=== PATIENT | female | born 1950 | race Hispanic/Latino ===

== ENCOUNTER 2016-09-04 10:51 | Outpatient (CLI) | payer BC ==
--- NOTE | 2016-09-05 09:41 | Mammography Report ---
BILATERAL MAMMOGRAM: FINDINGS: The breast tissue is heterogeneously dense, which could obscure detection of small masses (approximately 50%-75% glandular). No mass, distortion, suspicious calcification, or skin change is seen. There are no interval changes when compared to exams dating back to 2015. CAD was utilized. IMPRESSION: Negative mammogram. There is no mammographic evidence of malignancy. RECOMMENDATION: Follow-up per ACS guidelines. BI-RADS CATEGORY: 1 = Negative ACR BI-RADS MAMMOGRAPHIC CODES: 0 = Needs additional imaging evaluation; 1 = Negative; 2 = Benign; 3 = Probably benign; 4 = Suspicious; 5 = Malignant; 6 = Known biopsy-proven malignancy COMMENT: 1. Dense breast tissue, i.e., adenosis, fibrocystic changes, etc., may obscure an underlying neoplasm. 2. Approximately 10% of cancers are not detected with mammography. 3. A negative mammography report should not delay biopsy if a clinically suspicious mass is present. COMMENT: Patient follow-up letters are generated in [employer].
== END 2016-09-04 10:52 | disposition home or self-care (01) ==
LOC: MAMMO 10:51
PROVIDERS: ATTEND Nurse Practitioner Women's Health
DX: Z12.31 Encounter for screening mammogram for malignant neoplasm of breast (principal)
CPT/HCPCS: 77067; G0202

== ENCOUNTER 2016-09-30 08:48 | Outpatient (CLI) | payer BC ==
[2016-09-30 09:17] LABS: Hematocrit 47.4 % (30.3-42.9); Hemoglobin 15.3 gm/dl (10.1-14.3); Mean Corpuscular HGB Conc 32 % (30-34); Mean Corpuscular Volume 79 fl (79-97); Platelet Count 234 K/mm3 (140-440); Red Blood Count 6.04 M/mm3 (3.65-5.03); Red Cell Distribution Width 14.2 % (13.2-15.2); White Blood Count 9.9 K/mm3 (4.5-11.0)
[2016-09-30 09:30] LABS: Mean Corpuscular Hemoglobin 25 pg (28-32)
[2016-09-30 09:33] LABS: Alanine Aminotransferase 56 units/L (7-56); Albumin 4.3 g/dL (3.9-5); Albumin/Globulin Ratio 1.2 %; Alkaline Phosphatase 77 units/L (35-129); Anion Gap 21 mmol/L; Bilirubin,Total 0.4 mg/dL (0.1-1.2); Blood Urea Nitrogen 11 mg/dL (7-17); Calcium 9.4 mg/dL (8.4-10.2); Carbon Dioxide 25 mmol/L (22-30); Chloride 97.8 mmol/L (98-107); Cholesterol 205 mg/dL (50-199); Glucose 185 mg/dL (65-100); HDL Cholesterol 48 mg/dL (40-59); LDL Cholesterol,Direct TNR mg/dL (50-130); Potassium 4.5 mmol/L (3.6-5.0); Sodium 139 mmol/L (137-145); Total Protein 7.8 g/dL (6.3-8.2); Triglycerides 494 mg/dL (2-149)
== END 2016-09-30 08:49 | disposition home or self-care (01) ==
LOC: LAB 08:48
PROVIDERS: ATTEND Family Medicine
DX: E11.9 Type 2 diabetes mellitus without complications (principal); E78.6 Lipoprotein deficiency; R31.1 Benign essential microscopic hematuria; Z79.899 Other long term (current) drug therapy
CPT/HCPCS: 36415; 80053; 80061; 83036; 85027

== ENCOUNTER 2017-02-19 07:22 | Day surgery (SDC) | payer BC ==
[2017-02-19] MEDS ORDERED: NACL 0.9% 1000 ML 1,000 ML IV SCH (08:00)
--- NOTE | 2017-02-19 08:07 | Anesthesia Day of Surgery ---
Anesthesia Day of Surgery - Day of Surgery Patient Examined: Yes Patient H&P Reviewed: Yes Patient is NPO: Yes
--- NOTE | 2017-02-19 08:08 | Anesthesia Consultation ---
Anesthesia Consult and Med Hx Date of service: 02/19/17 - Airway Anesthetic Teeth Evaluation: Good, Bridges (upper) ROM Head & Neck: Adequate Mental/Hyoid Distance: Adequate Mallampati Class: Class I Intubation Access Assessment: Good - Pulmonary Exam CTA: Yes - Cardiac Exam Cardiac Exam: RRR - Pre-Operative Health Status ASA Pre-Surgery Classification: ASA2 Proposed Anesthetic Plan: General, MAC - Pulmonary Hx Smoking: No Hx Asthma: No - Cardiovascular System Hx Hypertension: No Hx Heart Attack/AMI: No - Central Nervous System Hx Seizures: No CVA: No - Gastrointestinal Hx Gastroesophageal Reflux Disease: Yes (on prilosec) - Endocrine Hx Renal Disease: No Hx Liver Disease: No Hx Non-Insulin Dependent Diabetes: Yes - Additional Comments Anesthesia Medical History Comments: NAC
[2017-02-19] MEDS ORDERED: DIPRIVAN 10 MG/ML IV ONE ×2 (08:49)
[2017-02-19] MEDS ORDERED: XYLOCAINE MPF 2% ONE (08:49)
[2017-02-19] MEDS ORDERED: ROBINUL ONE (09:00)
--- NOTE | 2017-02-19 09:54 | Operative Report ---
Operative Report Operative Report: Date of procedure: [02/19/2017] Procedure: Esophagogastroduodenoscopy Preprocedure diagnosis: Chronic GERD, rule out Hurley's Post procedure diagnosis: Normal upper endoscopy Endoscopist: Dr. Jackson Anesthesia: Monitored anesthesia care per anesthesia department Medications: Propofol per anesthesia Estimated blood loss: 0 After careful discussion of the nature and purpose of the procedure as well as details the technique risks benefits and alternatives consent was obtained. The patient was placed in the left lateral decubitus position and medicated per anesthesia. The tip of the [facility] EQ 570 video scope was passed per orum under direct vision into the esophagus and advanced into the stomach and descending duodenum. The descending duodenum the duodenal bulb and pylorus were symmetrical and normal. The scope was withdrawn into the stomach and the stomach then gently insufflated with air. The antrum was normal. The stomach was further insufflated and the scope was then retroflexed and partially withdrawn. The cardia, fundus, and body of the stomach were within normal limits and easily distensible.The scope was then withdrawn in the forward position. The esophagogastric junction was at 35 cm the Z line was sharp. The esophageal body was normal throughout. The procedure was was well tolerated and the patient was observed in recovery. Impressions: Normal-appearing upper digestive tract with no evidence of Hurley' s. Plan: Continue acid suppression therapy. Electronically signed: Russ Jackson MD
--- NOTE | 2017-02-19 09:56 | Operative Report ---
Operative Report Operative Report: Date of procedure: 02/19/2017 Preprocedure diagnosis: History of colon polyps Post procedure diagnosis: Normal study with no recurrent polyps Procedure: Colonoscopy to the cecum Endoscopist: Dr. Jackson Anesthesia: Monitored anesthesia care per anesthesia department Estimated blood loss: 0 Medications: Monitored anesthesia care. See separate report by anesthesia for details. After careful discussion of the nature and purpose of the procedure as well as details of the technique risks benefits and alternatives the patient gave consent. Please see recent history and physical from the office. The patient was placed in the left lateral decubitus position and medicated per anesthesia. A rectal exam was performed sphincter tone was normal there were no masses palpable. The [employer] 570 scope was passed transanally and advanced under continuous direct vision without difficulty to the cecum. The colon was well prepared. The cecum was normal. The ascending colon was normal and on forward and retroflexed views. The transverse colon, descending colon, and sigmoid colon were normal except for a bluish area near the splenic flexure suggesting prior tattoo. The rectum was normal on forward and retroflexed views. The procedure was well-tolerated overall and the patient was observed in recovery. Conclusions: Normal colonoscopy to the cecum. Plan: Repeat colonoscopy in 5 years. Signed electronically: Russ Jackson M.D.
--- NOTE | 2017-02-19 09:59 | Short Stay Summary ---
Short Stay Documentation Date of service: 02/19/17 Narrative H&P: 66-year-old patient who presents for colonoscopy due to prior history of polyps and for upper endoscopy due to chronic gastroesophageal reflux disease to exclude Hurley's - History Past Medical History: diabetes, hypertension Past Surgical History: No surgical history Social history: no significant social history - Allergies and Medications Current Medications: Allergies No Known Allergies Allergy (Verified 02/18/17 13:21) Home Medications Medication Instructions Recorded Confirmed Last Taken Type Omeprazole [PriLOSEC] 40 mg PO QDAY #30 cap 11/01/15 02/18/17 Rx Simvastatin [Zocor TAB] 20 mg PO QHS 11/01/15 11/01/15 02/18/17 History Sitagliptin Phos/Metformin HCl 11/01/15 02/18/17 History [Janumet 50-1,000 mg] glipiZIDE [Glucotrol] 10 mg PO QDAY 11/01/15 11/01/15 02/18/17 History Active Medications Sodium Chloride (Nacl 0.9% 1000 Ml) 1,000 mls @ 50 mls/hr IV DIRECT TSERING Last Admin: 02/19/17 08:16 Dose: 50 mls/hr - Physical exam General appearance: no acute distress, well-nourished Integumentary: no rash, no growths, no abnormal pigmentation HEENT: Atraumatic, PERRLA, EOMI, Mucous membr. moist/pink Lungs: Clear to auscultation, Normal air movement Breasts: deferred Heart: Regular rate, Normal S1, Normal S2, No murmurs Gastrointestinal: normoactive bowel sounds, no tenderness, no distended, no masses, no guarding, no hepatomegaly, no splenomegaly, no obese Female Genitourinary: deferred Rectal Exam: deferred Extremities: no ischemia, pulses intact, pulses symmetrical, No edema Neurological: Normal gait, Normal speech, Strength at 5/5 X4 ext, Normal tone, Sensation intact, Cranial nerves 3-12 NL - Brief post op/procedure progress note Date of procedure: 02/19/17 Findings: See dictation Estimated blood loss: none Pathology: none Specimen disposition: to lab Condition: stable - Disposition Condition at discharge: Good Disposition: DC-01 TO HOME OR SELFCARE - Discharge Diagnoses (1) History of colon polyps Status: Acute (2) GERD (gastroesophageal reflux disease) Status: Acute Qualifiers: Esophagitis presence: E Short Stay Discharge Plan Activity: other (no driving for 24 hours) Weight Bearing Status: Full Weight Bearing Follow up with: SAPNA CARRERA MD [Primary Care Provider] - 7 Days
--- NOTE | 2017-02-19 10:00 | Post Anesthesia Evaluation ---
- Post Anesthesia Evaluation Patient Participated: Yes Airway Patent: Yes Stable Respiratory Function: Yes Nausea/Vomiting: No Temp > 96.8F: Yes Pain Manageable: Yes Adequeate Hydration: Yes Anesthesia Complications: No
[2017-02-19 10:20] VITALS: BP 122/70
== END 2017-02-19 07:23 | disposition home or self-care (01) ==
LOC: GIO 07:22
PROVIDERS: ATTEND Internal Medicine Gastroenterology
DX: Z09 Encounter for follow-up examination after completed treatment for conditions other than malignant neoplasm (principal); K21.9 Gastro-esophageal reflux disease without esophagitis; I10 Essential (primary) hypertension; E11.9 Type 2 diabetes mellitus without complications; Z87.19 Personal history of other diseases of the digestive system; Z79.899 Other long term (current) drug therapy; Z79.84 Long term (current) use of oral hypoglycemic drugs
CPT/HCPCS: 43235; 45378; 82962; J2704; J7030

== ENCOUNTER 2017-09-04 06:13 | Outpatient (CLI) | payer BC ==
--- NOTE | 2017-09-04 08:59 | XRay Report ---
Right shoulder, 3 views. Findings: There are no fractures or other acute findings. Orthopedic screws are seen in the humerus. Mild DJD of the a.c. joint is present. Impression: No acute findings.
== END 2017-09-04 06:14 | disposition home or self-care (01) ==
LOC: XRAY 06:13
PROVIDERS: ATTEND Orthopaedic Surgery
DX: M19.011 Primary osteoarthritis, right shoulder (principal)

== ENCOUNTER 2017-09-08 06:16 | Outpatient (CLI) | payer BC ==
--- NOTE | 2017-09-08 14:36 | Mammography Report ---
BILATERAL DIGITAL SCREENING MAMMOGRAM with CAD and DIGITAL BREAST TOMOSYNTHESIS (DBT): 09/08/17 07:30:00 CLINICAL: Routine screening. COMPARISON:09/04/16 and 09/05/15 FINDINGS: The breasts are heterogeneously dense, which may obscure small masses. No mass, architectural distortion or suspicious calcifications. IMPRESSION: No mammographic evidence of malignancy. BI-RADS CATEGORY: 1 - - Negative RECOMMENDATION: Routine mammographic screening in one year. COMMENT: Patient follow-up letters are generated by our [employer] application.
== END 2017-09-08 06:17 | disposition home or self-care (01) ==
LOC: MAMMO 06:16
PROVIDERS: ATTEND Family Medicine
DX: Z12.31 Encounter for screening mammogram for malignant neoplasm of breast (principal)
CPT/HCPCS: 77063; 77067

== ENCOUNTER 2017-11-18 06:07 | Outpatient (CLI) | payer BC ==
--- NOTE | 2017-11-18 11:29 | Magnetic Resonance Report ---
MR LOWER EXTREMITY JOINT LEFT WITHOUT CONTRAST History: Left knee pain. Technique: Multisequence, multiplanar MRI without contrast. Comparison: None. Findings: The bone marrow signal is within normal limits. No evidence for fracture or bone lesion. There is severe cartilage thinning throughout the medial compartment of the left knee. Mild cartilage thinning in the lateral compartment. The retro-patellar cartilage appears normal thickness although a focal cartilage defect which nearly extends to bone is identified in the lateral facet which is best demonstrated on axial proton density fat sat image 20. The ACL, PCL, MCL, LCL complex and extensor complex are intact and within normal limits. The lateral meniscus is within normal limits. The medial meniscus is severely abnormal. A horizontal cleavage tear is suspected in the body and the anterior portions of the posterior horn. There is meniscal material in the medial, inferior joint recess suggesting a medial flipped meniscus. There is also an approximate 9 mm cyst in this area consistent with a parameniscal cyst. Trace joint effusion is identified. No popliteal cyst. IMPRESSION: Moderate osteoarthritic changes as described. Complex medial meniscal tear with evidence of a flipped medial meniscus. Small para meniscal cyst. Focal retropatellar cartilage defect, lateral facet. Trace joint effusion.
== END 2017-11-18 06:08 | disposition home or self-care (01) ==
LOC: MRI 06:07
PROVIDERS: ATTEND Orthopaedic Surgery
DX: S83.232A Complex tear of medial meniscus, current injury, left knee, initial encounter (principal); M17.12 Unilateral primary osteoarthritis, left knee; X58.XXXA Exposure to other specified factors, initial encounter; Y93.89 Activity, other specified; Y92.89 Other specified places as the place of occurrence of the external cause; Y99.8 Other external cause status
CPT/HCPCS: 73721

== ENCOUNTER 2017-11-25 06:39 | Outpatient (CLI) | payer BC | END 2017-11-25 06:40 | disposition home or self-care (01) | LOC: CARD 06:39 | PROVIDERS: ATTEND Orthopaedic Surgery | DX: Z01.818 Encounter for other preprocedural examination (principal) | CPT/HCPCS: 93005; 93010 ==

== ENCOUNTER 2017-12-24 10:05 | Day surgery (SDC) | payer BC ==
[~2017-12-24 10:05] MED LIST: ANCEF/STERILE WATER 2 GM/20 ML IV NR; LACTATED RINGERS 1,000 ML IV SCH; VERSED IV NR
[2017-12-24] MEDS ORDERED: DIPRIVAN 10 MG/ML IV ONE (11:05)
[2017-12-24] MEDS ORDERED: PERCOCET 5/325 PO PRN (11:23)
[2017-12-24] MEDS ORDERED: DILAUDID IV PRN (11:23)
[2017-12-24] MEDS ORDERED: ZOFRAN IV PRN (11:23)
--- NOTE | 2017-12-24 11:23 | Anesthesia Consultation ---
Anesthesia Consult and Med Hx Date of service: 12/24/17 - Airway Anesthetic Teeth Evaluation: Good ROM Head & Neck: Adequate Mental/Hyoid Distance: Inadequate (2.75FB) Mallampati Class: Class I Intubation Access Assessment: Probably Good - Pulmonary Exam CTA: Yes - Cardiac Exam Cardiac Exam: RRR - Pre-Operative Health Status ASA Pre-Surgery Classification: ASA3 Proposed Anesthetic Plan: General - Pulmonary Hx Smoking: No Hx Asthma: No Hx Sleep Apnea: No (DEONDRE PRE SCREEN LOW RISK) - Cardiovascular System Hx Hypertension: No Hx Heart Attack/AMI: No - Central Nervous System Hx Seizures: No CVA: No - Gastrointestinal Hx Gastroesophageal Reflux Disease: Yes (on prilosec - took this morning) - Endocrine Hx Renal Disease: No Hx Liver Disease: No Hx Non-Insulin Dependent Diabetes: Yes - Other Systems Hx Cancer: No
--- NOTE | 2017-12-24 11:23 | Anesthesia Day of Surgery ---
Anesthesia Day of Surgery - Day of Surgery Patient Examined: Yes Patient H&P Reviewed: Yes Patient is NPO: Yes
[2017-12-24] MEDS ORDERED: MARCAINE 0.25% INFILTRATI ONE (11:40)
[2017-12-24] MEDS ORDERED: SUBLIMAZE ONE (11:44)
[2017-12-24] MEDS ORDERED: HumuLIN R IV ONE ×2 (12:00→13:20)
[2017-12-24] MEDS ORDERED: PEPCID IV NR (12:00)
[2017-12-24] MEDS ORDERED: XYLOCAINE MPF 2% ONE (12:49)
[2017-12-24] MEDS ORDERED: DECADRON ONE (12:49)
[2017-12-24] MEDS ORDERED: ZOFRAN ONE (12:49)
[2017-12-24 15:29] VITALS: BP 124/77
--- NOTE | 2017-12-24 23:27 | Operative Report ---
PREOPERATIVE DIAGNOSIS: Left knee with degenerative joint disease, meniscal tear. POSTOPERATIVE DIAGNOSES: 1. Extensive tear of posterior horn body, medial meniscus. 2. Grade 3 chondromalacia, medial femoral condyle. 3. Synovitis, extensive. PROCEDURE PERFORMED: 1. Left knee arthroscopy with partial medial meniscectomy. 2. Extensive synovectomy. 3. Chondroplasty, medial femoral condyle. SURGEON: Daniel Pantoja MD HIGH PRESSURE OPERATOR: Norberto James CSA ANESTHESIA: General. ESTIMATED BLOOD LOSS: Minimal. COMPLICATIONS: None. DESCRIPTION OF PROCEDURE: The patient underwent successful induction of anesthesia. Lower extremity was carefully positioned in the leg oneil after being exsanguinated, prepped and draped in usual fashion. Arthroscopy was carried out utilizing standard medial and lateral portals. Systematic examination of the joint was carried out demonstrated findings as noted. The synovitis tricompartmentally was debrided. Patellofemoral and lateral compartments were well preserved, protect the articular surface of meniscus. Notch demonstrated normal ACL and PCL. Medial primary source of pathology grade 3 chondromalacia of the medial femoral condyle, gently debrided with full resector. The meniscus demonstrated complex extensive tear involving the entire posterior horn extending into the body. This had horizontal, vertical and radial cleavage components. With a combination of bites full resector surface, excellent stable rim was achieved. The flap preservation of the peripheral third of the meniscus at the apex tapering to a more normal meniscus, both the anterior and posterior to this. Intraoperative photos were obtained for documentation. The arthroscopic instruments were removed. Ports were closed with nylon sutures. A sterile dressing was applied. She was taken to recovery in satisfactory condition having tolerated the procedure well. JOB# [id number] NORY/ASPEN
== END 2017-12-24 14:45 | disposition home or self-care (01) ==
LOC: OR 10:05
PROVIDERS: ATTEND Orthopaedic Surgery
DX: S83.232A Complex tear of medial meniscus, current injury, left knee, initial encounter (principal); M17.12 Unilateral primary osteoarthritis, left knee; M94.262 Chondromalacia, left knee; K21.9 Gastro-esophageal reflux disease without esophagitis; E11.9 Type 2 diabetes mellitus without complications; X58.XXXA Exposure to other specified factors, initial encounter; Y93.89 Activity, other specified; Y92.89 Other specified places as the place of occurrence of the external cause; Y99.8 Other external cause status
CPT/HCPCS: 29876; 29881; 82962; J0690; J1100; J2250; J2405; J2704; J3010; J7120; J1815

== ENCOUNTER 2018-04-02 06:40 | Outpatient (CLI) | payer BC, MEDICARE ==
[2018-04-02 07:20] LABS: Basophils # (Auto) 0.1 K/mm3 (0.0-0.1); Basophils % (Auto) 0.6 % (0.0-1.8); Eosinophils # (Auto) 0.1 K/mm3 (0.0-0.4); Eosinophils % (Auto) 0.6 % (0.0-4.3); Hematocrit 42.6 % (30.3-42.9); Hemoglobin 13.7 gm/dl (10.1-14.3); Lymphocytes # (Auto) 1.4 K/mm3 (1.2-5.4); Lymphocytes % (Auto) 9.3 % (13.4-35.0); Mean Corpuscular HGB Conc 32 % (30-34); Mean Corpuscular Volume 79 fl (79-97); Monocytes # (Auto) 1.1 K/mm3 (0.0-0.8); Monocytes % (Auto) 6.9 % (0.0-7.3); Platelet Count 220 K/mm3 (140-440); Red Blood Count 5.39 M/mm3 (3.65-5.03); Red Cell Distribution Width 14.2 % (13.2-15.2)
[2018-04-02 07:27] LABS: Mean Corpuscular Hemoglobin 26 pg (28-32)
[2018-04-02 07:37] LABS: Alanine Aminotransferase 34 units/L (7-56); BUN/Creatinine Ratio 40; Blood Urea Nitrogen 16 mg/dL (7-17); Calcium 9.2 mg/dL (8.4-10.2); Chol/HDL Ratio 3.01 %; HDL Cholesterol 59 mg/dL (40-59); Hemolysis Index 3; LDL Cholesterol,Direct 92 mg/dL (50-130)
[2018-04-02 07:38] LABS: Free T4 (Free Thyroxine) 1.31 ng/dL (0.76-1.46)
== END 2018-04-02 06:41 | disposition home or self-care (01) ==
LOC: LAB 06:40
PROVIDERS: ATTEND Family Medicine
DX: E55.9 Vitamin D deficiency, unspecified (principal); E11.65 Type 2 diabetes mellitus with hyperglycemia; E78.6 Lipoprotein deficiency; R76.11 Nonspecific reaction to tuberculin skin test without active tuberculosis; K21.9 Gastro-esophageal reflux disease without esophagitis; E78.00 Pure hypercholesterolemia, unspecified; M19.90 Unspecified osteoarthritis, unspecified site; R63.5 Abnormal weight gain; Z79.899 Other long term (current) drug therapy
CPT/HCPCS: 36415; 80053; 80061; 82306; 83036; 84439; 84443; 85025

== ENCOUNTER 2018-08-24 06:47 | Outpatient (CLI) | payer BC, MEDICARE ==
--- NOTE | 2018-08-24 15:03 | Magnetic Resonance Report ---
MR LOWER EXTREMITY JOINT RIGHT WITHOUT CONTRAST History: Tear of meniscus of knee. Technique: Multisequence, multiplanar MRI with gadolinium. Comparison: MR right knee dated 06/30/13. Findings: The posterior horn and body of the medial meniscus are abnormal. A horizontal cleavage tear is suspected. The lateral meniscus is within normal limits. 2 or 3 tiny intra-articular foreign bodies are suspected in the anterior joint space. These tiny structures measure 2-3 mm in greatest diameter and demonstrate signal similar to the menisci. This is a new finding since the previous exam. The bone marrow signal is within normal limits. No evidence for fracture or bone lesion. Moderate cartilage loss is suspected throughout the right knee. Cartilage loss appears most pronounced overlying the medial femoral condyle. There may be complete cartilage loss in this area. The ACL, PCL, MCL, LCL complex and extensor complex are intact. Small to medium joint effusion is identified which extends to the suprapatellar bursa. No popliteal cyst. IMPRESSION: Abnormal medial meniscus. Horizontal cleavage tear in the body and posterior horn is suspected. There appear to be 2 or 3 tiny intra-articular foreign bodies in the anterior joint space. These may represent tiny meniscal fragments. Cartilage loss as described. Small to medium joint effusion.
== END 2018-08-24 06:48 | disposition home or self-care (01) ==
LOC: MRI 06:47
PROVIDERS: ATTEND Orthopaedic Surgery
DX: S83.207D Unspecified tear of unspecified meniscus, current injury, left knee, subsequent encounter (principal); M25.462 Effusion, left knee; K21.9 Gastro-esophageal reflux disease without esophagitis; E78.00 Pure hypercholesterolemia, unspecified; E11.9 Type 2 diabetes mellitus without complications; X58.XXXD Exposure to other specified factors, subsequent encounter
CPT/HCPCS: 73721

== ENCOUNTER 2018-09-09 06:32 | Outpatient (CLI) | payer BC, MEDICARE ==
--- NOTE | 2018-09-09 13:40 | Mammography Report ---
BILATERAL DIGITAL SCREENING MAMMOGRAM with CAD: 09/09/18 06:32:00 CLINICAL: Routine screening. COMPARISON:09/08/17 FINDINGS: The breasts are heterogeneously dense, which may obscure small masses. No mass, architectural distortion or suspicious calcifications. IMPRESSION: No mammographic evidence of malignancy. BI-RADS CATEGORY: 1 - - Negative RECOMMENDATION: Routine mammographic screening in one year. COMMENT: Patient follow-up letters are generated by our [employer] application.
== END 2018-09-09 06:33 | disposition home or self-care (01) ==
LOC: MAMMO 06:32
PROVIDERS: ATTEND Family Medicine
DX: Z12.31 Encounter for screening mammogram for malignant neoplasm of breast (principal)
CPT/HCPCS: 77067

== ENCOUNTER 2018-10-20 06:42 | Outpatient (CLI) | payer BC, MEDICARE ==
[2018-10-20 07:13] LABS: Basophils # (Auto) 0.1 K/mm3 (0.0-0.1); Basophils % (Auto) 0.7 % (0.0-1.8); Eosinophils # (Auto) 0.1 K/mm3 (0.0-0.4); Eosinophils % (Auto) 1.1 % (0.0-4.3); Hematocrit 43.3 % (30.3-42.9); Lymphocytes # (Auto) 2.5 K/mm3 (1.2-5.4); Lymphocytes % (Auto) 23.3 % (13.4-35.0); Mean Corpuscular HGB Conc 32 % (30-34); Mean Corpuscular Volume 79 fl (79-97); Monocytes # (Auto) 0.7 K/mm3 (0.0-0.8); Monocytes % (Auto) 6.8 % (0.0-7.3); Platelet Count 261 K/mm3 (140-440); Red Blood Count 5.46 M/mm3 (3.65-5.03)
[2018-10-20 07:32] LABS: Alanine Aminotransferase 29 units/L (7-56); Albumin 4.1 g/dL (3.9-5); BUN/Creatinine Ratio 38; Blood Urea Nitrogen 19 mg/dL (7-17); Calcium 9.3 mg/dL (8.4-10.2); Hemolysis Index 7; LDL Cholesterol,Direct 89 mg/dL (50-130)
[2018-10-20 07:49] LABS: Free T4 (Free Thyroxine) 1.23 ng/dL (0.76-1.46)
[2018-10-20 08:16] LABS: Chol/HDL Ratio 3.83 %; HDL Cholesterol 43 mg/dL (40-59)
== END 2018-10-20 06:43 | disposition home or self-care (01) ==
LOC: CARD 06:42
PROVIDERS: ATTEND Family Medicine
DX: Z01.818 Encounter for other preprocedural examination (principal); E11.65 Type 2 diabetes mellitus with hyperglycemia; D63.8 Anemia in other chronic diseases classified elsewhere; R63.5 Abnormal weight gain; E78.6 Lipoprotein deficiency; Z79.899 Other long term (current) drug therapy
CPT/HCPCS: 36415; 80053; 80061; 83036; 84439; 84443; 85025; 93005; 93010

== ENCOUNTER 2018-11-18 07:43 | Day surgery (SDC) | payer BC, MEDICARE ==
[~2018-11-18 07:43] MED LIST changes: -LACTATED RINGERS 1,000 ML IV SCH; -VERSED IV NR
[2018-11-18] MEDS ORDERED: LACTATED RINGERS 1,000 ML IV SCH (11:00)
[2018-11-18] MEDS ORDERED: VERSED IV NR (11:00)
--- NOTE | 2018-11-18 11:04 | Anesthesia Day of Surgery ---
Anesthesia Day of Surgery - Day of Surgery Patient Examined: Yes Patient H&P Reviewed: Yes Patient is NPO: Yes
--- NOTE | 2018-11-18 11:04 | Anesthesia Consultation ---
Anesthesia Consult and Med Hx Date of service: 11/18/18 - Airway Anesthetic Teeth Evaluation: Good (implants) ROM Head & Neck: Adequate Mental/Hyoid Distance: Adequate Mallampati Class: Class I Intubation Access Assessment: Good - Pulmonary Exam CTA: Yes - Cardiac Exam Cardiac Exam: RRR - Pre-Operative Health Status ASA Pre-Surgery Classification: ASA2 Proposed Anesthetic Plan: General - Pulmonary Hx Smoking: No Hx Respiratory Symptoms: No Hx Sleep Apnea: No (DEONDRE PRE SCREEN LOW RISK) - Cardiovascular System Hx Hypertension: No (HLD) Hx Heart Attack/AMI: No - Central Nervous System Hx Seizures: No CVA: No - Gastrointestinal Hx Gastroesophageal Reflux Disease: Yes (on prilosec - took this morning) - Endocrine Hx Renal Disease: No Hx Liver Disease: No Hx Non-Insulin Dependent Diabetes: Yes - Other Systems Hx Obesity: No - Additional Comments Anesthesia Medical History Comments: No hx anesthetic complications.
[2018-11-18] MEDS ORDERED: DILAUDID IV PRN (11:05)
[2018-11-18] MEDS ORDERED: MARCAINE-EPI 0.25%-1:200,000 INFILTRATI ONE (12:54)
[2018-11-18] MEDS ORDERED: XYLOCAINE CARDIAC IV ONE (13:00)
[2018-11-18] MEDS ORDERED: SUBLIMAZE ONE (13:00)
[2018-11-18] MEDS ORDERED: DIPRIVAN 10 MG/ML IV ONE (13:01)
[2018-11-18] MEDS ORDERED: ZOFRAN ONE (13:15)
[2018-11-18] MEDS ORDERED: NEO SYNEPHRINE/NS Syringe(OR USE) IV ONE (13:20)
[2018-11-18] MEDS ORDERED: MARCAINE-EPI 0.25%-1:200,000 IJ ONE (13:55)
[2018-11-18 16:22] VITALS: BP 111/62
--- NOTE | 2018-11-19 01:59 | Operative Report ---
PREOPERATIVE DIAGNOSES: Right knee with degenerative joint disease, meniscal tears. POSTOPERATIVE DIAGNOSES: 1. Right knee with extensive tear lateral meniscus global. 2. Tear posterior medial meniscus. 3. Grade 4 chondromalacia lateral compartment. 4. Grade 3 chondromalacia medial femoral condyle. 5. Extensive tricompartmental synovitis. 6. Multiple loose osteochondral fragments. PROCEDURE PERFORMED: 1. Right knee arthroscopy with partial medial and lateral meniscectomy. 2. Extensive synovectomy. 3. Removal of multiple loose bodies. SURGEON: Daniel Pantoja M.D. PARACHUTE OFFICER: Norberto James CSA. ANESTHESIA: General. ESTIMATED BLOOD LOSS: Minimal. COMPLICATIONS: None. DESCRIPTION OF PROCEDURE: This patient underwent successful induction of general anesthesia. Following this, the lower extremity was kept on well-leg oneil, prepped and draped in usual fashion. This was exsanguinated . Antibiotics were preadministered. Arthroscopy was carried out standard medial and lateral portals. Systematic exam, the joint was carried out, demonstrated the findings noted. Noted to have extensive tricompartmental synovitis, which was debrided. The patellofemoral compartment relatively well preserved. Medial compartment, grade 3 chondromalacia diffusely on the medial femoral condyle gently debrided. Tear of the posterior horn of the medial meniscus debrided in combination of bites, full resector surface. Excellent stable rim achieved allowing preservation of peripheral 2/3rds of meniscus, majority anterior horn and the body. Notch normal ACL and PCL. Multiple loose osteochondral fragments were removed. Lateral compartment was the primary source of pathology. Extensive global tearing of the entire meniscus with complex tearing noted with everted flap tears of the body extending in the posterior horn and anteriorly. Meticulous debridement was carried out with a combination of bites full resector surface. Chondromalacia noted to be grade 4 on the tibial, femoral surfaces. Excellent debridement was achieved. However, this did necessitate resection of the central third of the meniscus and posterior horn central 60% of the body and at least 60% in the anterior horn. Thorough examination both portals. Intraoperative photos were obtained for documentation. copiously irrigated and injected with 0.25% Marcaine. Ports were closed with nylon sutures. Sterile dressing was applied. Taken to recovery room in satisfactory condition having tolerated the procedure okay. [facility]# [id number] JELENAP/NTS
== END 2018-11-18 16:20 | disposition home or self-care (01) ==
LOC: OR 07:43
PROVIDERS: ATTEND Orthopaedic Surgery
DX: M17.11 Unilateral primary osteoarthritis, right knee (principal); S83.271A Complex tear of lateral meniscus, current injury, right knee, initial encounter; S83.241A Other tear of medial meniscus, current injury, right knee, initial encounter; M22.41 Chondromalacia patellae, right knee; M65.861 Other synovitis and tenosynovitis, right lower leg; K21.9 Gastro-esophageal reflux disease without esophagitis; E78.00 Pure hypercholesterolemia, unspecified; I10 Essential (primary) hypertension; E11.9 Type 2 diabetes mellitus without complications; Z98.890 Other specified postprocedural states; Z79.899 Other long term (current) drug therapy; Z86.010 Personal history of colon polyps; X58.XXXA Exposure to other specified factors, initial encounter; Y93.89 Activity, other specified; Y92.89 Other specified places as the place of occurrence of the external cause; Y99.8 Other external cause status
CPT/HCPCS: 29876; 29880; 82962; J0690; J2001; J2250; J2370; J2405; J2704; J3010; J7120

== ENCOUNTER 2018-12-10 11:13 | Outpatient (CLI) | payer BC, MEDICARE ==
--- NOTE | 2018-12-11 09:00 | XRay Report ---
RIGHT FOOT RADIOGRAPHS INDICATION: Neoplasm of unspecified behavior of bone soft tissue and skin. Patient states right foot surgery 20 years ago. COMPARISON: None similar. FINDINGS: AP and lateral right foot radiographs demonstrate 2 bunionectomy pins projecting over the first metatarsal head/neck with slight old healed deformity. Osteopenia/osteoporosis. Mild degenerative changes at the first MTP joint noted. Small to moderate dorsal and plantar calcaneal spurs as well. CONCLUSION: No acute right foot radiographic abnormality with few degenerative and prior bunionectomy changes noted, as described. Please correlate. Thank you for the opportunity to participate in this patient's care.
== END 2018-12-10 11:14 | disposition home or self-care (01) ==
LOC: XRAY 11:13
PROVIDERS: ATTEND Podiatrist Foot & Ankle Surgery
DX: M19.071 Primary osteoarthritis, right ankle and foot (principal); K21.9 Gastro-esophageal reflux disease without esophagitis; E78.00 Pure hypercholesterolemia, unspecified; I10 Essential (primary) hypertension; E11.9 Type 2 diabetes mellitus without complications

== ENCOUNTER 2019-02-15 05:47 | Outpatient (CLI) | payer BC, MEDICARE ==
[2019-02-15 06:52] LABS: Chol/HDL Ratio 6.57 %
== END 2019-02-15 05:48 | disposition home or self-care (01) ==
LOC: LAB 05:47
PROVIDERS: ATTEND Internal Medicine
DX: E11.65 Type 2 diabetes mellitus with hyperglycemia (principal); E78.5 Hyperlipidemia, unspecified; K21.9 Gastro-esophageal reflux disease without esophagitis; E78.00 Pure hypercholesterolemia, unspecified; I10 Essential (primary) hypertension; E11.9 Type 2 diabetes mellitus without complications
CPT/HCPCS: 36415; 80061; 83036

== ENCOUNTER 2019-02-18 06:51 | Outpatient (CLI) | payer BC, MEDICARE ==
--- NOTE | 2019-02-18 10:57 | Mammography Report ---
BONE DEXA:02/18/19 06:51:00 CLINICAL: Postmenopausal. No comparison. TECHNIQUE: Two site bone DEXA performed on an Hologic scanner. FINDINGS: The average BMD of the left forearm is 0.312g/cm squared with a T-score of -4.9 and a Z-score of -3.0. The average BMD of the left hip is 0.483g/cm squared with a T-score of -3.8 and a Z-score of -2.4. IMPRESSION: WHO classification: Osteoporosis with high fracture risk based on both left forearm and left hip measurements. RECOMMENDATION: Clinical correlation and routine screening. DEFINITIONS: BMD = Bone Mineral Density T-score = BMD related to mean peak bone mass of young adult (mean expressed in Standard Deviation) Z-score = Age matched BMD expressed in SD World Health Organization (WHO) Diagnostic Criteria Normal T-score > -1 SD Osteopenia T-score between -1 and -2.4 SD Osteoporosis T-score -2.5 SD or below NOTE: BMD is not the only risk factor for fracture. One should also consider factors such as the patient's age, risk of falling, previous osteoporotic fracture, family history of osteoporotic fractures, current smoker, and low body weight. Z-scores are not calculated if >80 years of age.
== END 2019-02-18 06:52 | disposition home or self-care (01) ==
LOC: MAMMO 06:51
PROVIDERS: ATTEND Internal Medicine
DX: M81.0 Age-related osteoporosis without current pathological fracture (principal); K21.9 Gastro-esophageal reflux disease without esophagitis; E78.00 Pure hypercholesterolemia, unspecified; E11.9 Type 2 diabetes mellitus without complications; Z78.0 Asymptomatic menopausal state
CPT/HCPCS: 77080

== ENCOUNTER 2019-03-05 05:37 | Outpatient (CLI) | payer BC, MEDICARE ==
[2019-03-05 08:18] LABS: Chol/HDL Ratio 2.8 %
== END 2019-03-05 05:38 | disposition home or self-care (01) ==
LOC: LAB 05:37
PROVIDERS: ATTEND Internal Medicine
DX: E78.5 Hyperlipidemia, unspecified (principal); K21.9 Gastro-esophageal reflux disease without esophagitis; E78.00 Pure hypercholesterolemia, unspecified; I10 Essential (primary) hypertension; E11.9 Type 2 diabetes mellitus without complications
CPT/HCPCS: 36415; 80061

== ENCOUNTER 2019-06-24 05:50 | Outpatient (CLI) | payer BC ==
[2019-06-24 06:45] LABS: Chol/HDL Ratio 4.24 %
== END 2019-06-24 05:51 | disposition home or self-care (01) ==
LOC: LAB 05:50
PROVIDERS: ATTEND Internal Medicine
DX: E11.65 Type 2 diabetes mellitus with hyperglycemia (principal); E78.5 Hyperlipidemia, unspecified; K21.9 Gastro-esophageal reflux disease without esophagitis; E78.00 Pure hypercholesterolemia, unspecified; I10 Essential (primary) hypertension; M19.90 Unspecified osteoarthritis, unspecified site
CPT/HCPCS: 36415; 80061; 83036

== ENCOUNTER 2019-09-13 06:37 | Outpatient (CLI) | payer BC ==
--- NOTE | 2019-09-13 15:13 | Mammography Report ---
DIGITAL SCREENING MAMMOGRAM WITH CAD, 09/13/2019 INDICATION: Routine screening mammography. TECHNIQUE: Digital bilateral 2D mammography was obtained in the craniocaudal and mediolateral obliq ue projections. This examination was interpreted with the benefit of Computer-Aided Detection analysi s. COMPARISON: 09/09/2018 FINDINGS: Breast Density: The breasts are heterogeneously dense, which may obscure small masses. There is no evidence of dominant mass, suspicious calcifications or architectural distortion in eithe r breast. IMPRESSION: No mammographic evidence of malignancy. Follow up recommendation: Routine yearly BI-RADS Category 1: Negative. A "normal" or negative report should not discourage follow up or biopsy of a clinically significant f inding. A written summary of these findings will be mailed to the patient. The patient will be entered into a mammography reporting system which will generate a reminder letter for the patient's next appointmen t at the appropriate interval. The [employer] recommends yearly mammograms starting at age 40 and continuing as l ben as a woman is in good health. Breast MRI is recommended for women with an approximate 20-25% or greater lifetime risk of breast cancer, including women with a strong family history of breast or ova thompson cancer or who have been treated for Hodgkin's disease. Signer Name: Henry Hayden MD Signed: 09/13/2019 3:08 PM Workstation Name: [id number]
== END 2019-09-13 06:38 | disposition home or self-care (01) ==
LOC: MAMMO 06:37
PROVIDERS: ATTEND Family Medicine
DX: Z12.31 Encounter for screening mammogram for malignant neoplasm of breast (principal)
CPT/HCPCS: 77067

== ENCOUNTER 2019-09-27 05:55 | Outpatient (CLI) | payer BC ==
--- NOTE | 2019-09-27 08:27 | Magnetic Resonance Report ---
MR LE joint RT wo con INDICATION / CLINICAL INFORMATION: Lateral right knee pain and instability. TECHNIQUE: Multiplanar, multisequence MR images were obtained. COMPARISON: MRI 08/24/2018. FINDINGS: There is maceration of the lateral meniscus body and anterior horn. There is a small flipped fragment of the lateral meniscus into the lateral gutter superiorly (coronal images 14-15). There is degenera tive tearing extending into the posterior junctional zone/posterior horn of the lateral meniscus. Mild degenerative tearing of the medial meniscus body/posterior horn is again noted, unchanged. Media l meniscus body is partially extruded, unchanged. Cruciate and collateral ligaments are intact. Mucoid degeneration is noted in the ACL. The extensor m echanism is intact. There is a small joint effusion. No bursal fluid collections are seen. There is mild synovitis within the suprapatellar bursa. Tricompartmental osteoarthrosis is evidenced by joint space narrowing, cartilage loss, and mild osteo phyte formation. Cartilage loss is greatest along the weightbearing surface of the lateral tibial sabino teau. Bone marrow signal is unremarkable aside from subchondral changes related to overlying cartilag e loss. IMPRESSION: 1. Tricompartmental osteoarthrosis, greatest at the lateral tibiofemoral compartment. 2. There is maceration of the lateral meniscus body and anterior horn with extrusion of the lateral m eniscus body and small flipped fragments into the lateral gutter superiorly. 3. There is mild degenerative tearing of the medial meniscus. Signer Name: Mat Underwood MD Signed: 09/27/2019 8:22 AM Workstation Name: [id number]
== END 2019-09-27 05:56 | disposition home or self-care (01) ==
LOC: MRI 05:55
PROVIDERS: ATTEND Orthopaedic Surgery
DX: S83.241A Other tear of medial meniscus, current injury, right knee, initial encounter (principal); M25.461 Effusion, right knee; M17.11 Unilateral primary osteoarthritis, right knee; M65.861 Other synovitis and tenosynovitis, right lower leg; M25.861 Other specified joint disorders, right knee; X58.XXXA Exposure to other specified factors, initial encounter; Y93.89 Activity, other specified; Y92.89 Other specified places as the place of occurrence of the external cause; Y99.8 Other external cause status
CPT/HCPCS: 73721

== ENCOUNTER 2019-11-15 06:11 | Outpatient (CLI) | payer BC ==
[2019-11-15 06:34] LABS: Basophils # (Auto) 0.1 K/mm3 (0.0-0.1); Basophils % (Auto) 0.8 % (0.0-1.8); Eosinophils # (Auto) 0.1 K/mm3 (0.0-0.4); Eosinophils % (Auto) 0.9 % (0.0-4.3); Hemoglobin 14.2 gm/dl (10.1-14.3); Lymphocytes % (Auto) 31.6 % (13.4-35.0); Mean Corpuscular HGB Conc 32 % (30-34); Mean Corpuscular Volume 79 fl (79-97); Monocytes # (Auto) 0.9 K/mm3 (0.0-0.8); Monocytes % (Auto) 7.1 % (0.0-7.3); Platelet Count 270 K/mm3 (140-440); Red Blood Count 5.55 M/mm3 (3.65-5.03); Red Cell Distribution Width 14.7 % (13.2-15.2)
[2019-11-15 06:55] LABS: Alanine Aminotransferase 24 units/L (7-56); Albumin 4.4 g/dL (3.9-5); BUN/Creatinine Ratio 40; Blood Urea Nitrogen 20 mg/dL (7-17); Calcium 9.3 mg/dL (8.4-10.2); Chol/HDL Ratio 2.69 %; HDL Cholesterol 52 mg/dL (40-59); Hemolysis Index 30; LDL Cholesterol,Direct 50 mg/dL (50-130)
[2019-11-15 07:07] LABS: Free T4 (Free Thyroxine) 1.46 ng/dL (0.76-1.46)
[2019-11-17 13:04] LABS: Vitamin D, 25-OH, D2 <4 ng/mL
== END 2019-11-15 06:12 | disposition home or self-care (01) ==
LOC: LAB 06:11
PROVIDERS: ATTEND Family Medicine
DX: R76.11 Nonspecific reaction to tuberculin skin test without active tuberculosis (principal); R63.4 Abnormal weight loss; E78.6 Lipoprotein deficiency
CPT/HCPCS: 36415; 80053; 80061; 82306; 83036; 84439; 84443; 85025

== ENCOUNTER 2020-06-06 05:59 | Outpatient (CLI) | payer BC, MEDICARE ==
[2020-06-06 06:29] LABS: Basophils # (Auto) 0.1 K/mm3 (0.0-0.1); Basophils % (Auto) 0.6 % (0.0-1.8); Eosinophils # (Auto) 0.1 K/mm3 (0.0-0.4); Eosinophils % (Auto) 0.7 % (0.0-4.3); Hematocrit 40.6 % (30.3-42.9); Lymphocytes # (Auto) 2.1 K/mm3 (1.2-5.4); Lymphocytes % (Auto) 20.6 % (13.4-35.0); Mean Corpuscular HGB Conc 32 % (30-34); Mean Corpuscular Volume 78 fl (79-97); Monocytes # (Auto) 0.5 K/mm3 (0.0-0.8); Monocytes % (Auto) 5.3 % (0.0-7.3); Platelet Count 275 K/mm3 (140-440); Red Blood Count 5.24 M/mm3 (3.65-5.03)
[2020-06-06 07:02] LABS: Free T4 (Free Thyroxine) 1.4 ng/dL (0.76-1.46)
[2020-06-06 08:16] LABS: Alanine Aminotransferase 34 units/L (7-56); Albumin 4.4 g/dL (3.9-5); Blood Urea Nitrogen 15 mg/dL (7-17); Calcium 9.6 mg/dL (8.4-10.2); Hemolysis Index 3
[2020-06-06 08:18] LABS: BUN/Creatinine Ratio 30
[2020-06-06 08:40] LABS: Chol/HDL Ratio 2.01 %; HDL Cholesterol 54 mg/dL (40-59); LDL Cholesterol,Direct 41 mg/dL (50-130)
[2020-06-09 14:14] LABS: Vitamin D, 25-OH, D2 <4 ng/mL
== END 2020-06-06 06:00 | disposition home or self-care (01) ==
LOC: LAB 05:59
PROVIDERS: ATTEND Family Medicine
DX: E11.9 Type 2 diabetes mellitus without complications (principal); R31.1 Benign essential microscopic hematuria; E55.9 Vitamin D deficiency, unspecified; E78.6 Lipoprotein deficiency; R63.4 Abnormal weight loss; Z79.899 Other long term (current) drug therapy
CPT/HCPCS: 36415; 80053; 80061; 82306; 83036; 84439; 84443; 85025

== ENCOUNTER 2020-09-18 06:29 | Outpatient (CLI) | payer BC, MEDICARE ==
--- NOTE | 2020-09-18 09:21 | Mammography Report ---
DIGITAL SCREENING MAMMOGRAM WITH CAD, 09/18/2020 CLINICAL INFORMATION / INDICATION: Routine screening mammography. routine TECHNIQUE: Digital bilateral 2D mammography was obtained in the craniocaudal and mediolateral obliqu e projections. This examination was interpreted with the benefit of Computer-Aided Detection analysis . COMPARISON: 09/13/2019 FINDINGS: Breast Density: The breasts are heterogeneously dense, which may obscure small masses. No dominant mass, suspicious calcifications, or architectural distortion in either breast. Mild bilateral breast nodularity is largely unchanged. IMPRESSION: No mammographic evidence of malignancy. Follow up recommendation: Routine yearly BI-RADS Category 2: Benign. A "normal" or negative report should not discourage follow up or biopsy of a clinically significant f inding. A written summary of these findings will be mailed to the patient. The patient will be entered into a mammography reporting system which will generate a reminder letter for the patient's next appointmen t at the appropriate interval. The [employer] recommends yearly mammograms starting at age 40 and continuing as l ben as a woman is in good health. Breast MRI is recommended for women with an approximate 20-25% or greater lifetime risk of breast cancer, including women with a strong family history of breast or ova thompson cancer or who have been treated for Hodgkin's disease. Signer Name: Bob Hanna MD Signed: 09/18/2020 9:17 AM Workstation Name: [id number]
== END 2020-09-18 06:30 | disposition home or self-care (01) ==
LOC: MAMMO 06:29
PROVIDERS: ATTEND Family Medicine
DX: Z12.31 Encounter for screening mammogram for malignant neoplasm of breast (principal)
CPT/HCPCS: 77067

== ENCOUNTER 2020-11-27 05:43 | Outpatient (CLI) | payer BC, MEDICARE ==
[2020-11-27 06:25] LABS: Bilirubin,Urine NEG (Negative); Blood,Urine NEG (Negative); Color,Urine Yellow (Yellow); Protein,Urine <15 mg/dL mg/dL (Negative); Urobilinogen,Urine < 2.0 mg/dL (<2.0); WBC,Urine < 1.0 /HPF (0.0-6.0)
[2020-11-27 06:32] LABS: Creatinine,Urine 46.1 mg/dL (0.1-20.0)
[2020-11-27 07:35] LABS: Alanine Aminotransferase 22 units/L (7-56); Albumin 4.3 g/dL (3.9-5); Blood Urea Nitrogen 15 mg/dL (7-17); Calcium 9.3 mg/dL (8.4-10.2); Chol/HDL Ratio 2.44 %; HDL Cholesterol 54 mg/dL (40-59); Hemolysis Index 5; LDL Cholesterol,Direct 55 mg/dL (50-130)
[2020-11-27 08:30] LABS: BUN/Creatinine Ratio 30
== END 2020-11-27 05:44 | disposition home or self-care (01) ==
LOC: LAB 05:43
PROVIDERS: ATTEND Family Medicine
DX: E78.6 Lipoprotein deficiency (principal); E11.9 Type 2 diabetes mellitus without complications; E55.9 Vitamin D deficiency, unspecified; R31.1 Benign essential microscopic hematuria; Z79.899 Other long term (current) drug therapy
CPT/HCPCS: 36415; 80053; 80061; 81001; 82043; 82306

== ENCOUNTER 2021-03-21 05:47 | Outpatient (CLI) | payer BC, MEDICARE ==
[2021-03-21 06:34] LABS: Basophils # (Auto) 0.1 K/mm3 (0.0-0.1); Basophils % (Auto) 0.9 % (0.0-1.8); Eosinophils # (Auto) 0.1 K/mm3 (0.0-0.4); Eosinophils % (Auto) 1.2 % (0.0-4.3); Hematocrit 38.9 % (30.3-42.9); Hemoglobin 12.2 gm/dl (10.1-14.3); Lymphocytes % (Auto) 26.2 % (13.4-35.0); Mean Corpuscular HGB Conc 31 % (30-34); Mean Corpuscular Volume 71 fl (79-97); Monocytes # (Auto) 0.9 K/mm3 (0.0-0.8); Monocytes % (Auto) 8.3 % (0.0-7.3); Platelet Count 252 K/mm3 (140-440); Red Blood Count 5.52 M/mm3 (3.65-5.03); Red Cell Distribution Width 16.5 % (13.2-15.2)
[2021-03-21 07:20] LABS: Alanine Aminotransferase 20 units/L (7-56); Albumin 4.5 g/dL (3.9-5); Blood Urea Nitrogen 14 mg/dL (7-17); Calcium 10.2 mg/dL (8.4-10.2); Chol/HDL Ratio 2.05 %; HDL Cholesterol 67 mg/dL (40-59); Hemolysis Index 2; LDL Cholesterol,Direct 57 mg/dL (50-130)
[2021-03-21 07:23] LABS: BUN/Creatinine Ratio 35
[2021-03-21 07:32] LABS: Free T4 (Free Thyroxine) 1.31 ng/dL (0.76-1.46)
== END 2021-03-21 05:48 | disposition home or self-care (01) ==
LOC: LAB 05:47
PROVIDERS: ATTEND Family Medicine
DX: R31.1 Benign essential microscopic hematuria (principal); E11.9 Type 2 diabetes mellitus without complications; E78.6 Lipoprotein deficiency; R63.5 Abnormal weight gain; Z79.899 Other long term (current) drug therapy
CPT/HCPCS: 36415; 80053; 80061; 83036; 84439; 84443; 85025

== ENCOUNTER 2021-08-10 05:44 | Outpatient (CLI) | payer BC, MEDICARE ==
[2021-08-10 07:07] LABS: Hematocrit 38.5 % (30.3-42.9); Hemoglobin 11.6 gm/dl (10.1-14.3); Mean Corpuscular Volume 67 fl (79-97); Red Blood Count 5.72 M/mm3 (3.65-5.03)
[2021-08-10 07:08] LABS: Basophils # (Auto) 0.1 K/mm3 (0.0-0.1); Basophils % (Auto) 0.6 % (0.0-1.8); Eosinophils # (Auto) 0.1 K/mm3 (0.0-0.4); Eosinophils % (Auto) 0.9 % (0.0-4.3); Lymphocytes # (Auto) 2.8 K/mm3 (1.2-5.4); Lymphocytes % (Auto) 30.7 % (13.4-35.0); Mean Corpuscular HGB Conc 30 % (30-34); Monocytes # (Auto) 0.7 K/mm3 (0.0-0.8); Monocytes % (Auto) 7.2 % (0.0-7.3); Platelet Count 302 K/mm3 (140-440); Red Cell Distribution Width 18.7 % (13.2-15.2)
[2021-08-10 07:43] LABS: Alanine Aminotransferase 22 units/L (7-56); Albumin 4.7 g/dL (3.9-5); BUN/Creatinine Ratio 34; Blood Urea Nitrogen 17 mg/dL (7-17); Calcium 9.8 mg/dL (8.4-10.2); Free T4 (Free Thyroxine) 1.41 ng/dL (0.76-1.46); LDL Cholesterol,Direct 48 mg/dL (50-130)
[2021-08-10 07:44] LABS: Chol/HDL Ratio 2.14 %; HDL Cholesterol 56 mg/dL (40-59); Hemolysis Index 4
== END 2021-08-10 05:45 | disposition home or self-care (01) ==
LOC: LAB 05:44
PROVIDERS: ATTEND Family Medicine
DX: E11.65 Type 2 diabetes mellitus with hyperglycemia (principal); R06.6 Hiccough; E78.6 Lipoprotein deficiency; R63.4 Abnormal weight loss; E55.9 Vitamin D deficiency, unspecified; Z79.899 Other long term (current) drug therapy
CPT/HCPCS: 36415; 80053; 80061; 82306; 83036; 84439; 84443; 85025

== ENCOUNTER 2021-09-20 05:41 | Outpatient (CLI) | payer BC, MEDICARE ==
--- NOTE | 2021-09-20 14:57 | Mammography Report ---
DIGITAL SCREENING MAMMOGRAM WITH CAD, 09/20/2021 CLINICAL INFORMATION / INDICATION: Routine screening mammography. Z12.31 TECHNIQUE: Digital bilateral 2D mammography was obtained in the craniocaudal and mediolateral obliqu e projections. This examination was interpreted with the benefit of Computer-Aided Detection analysis . COMPARISON: 09/02/2014 through 09/18/2020. FINDINGS: Breast Density: The breasts are heterogeneously dense, which may obscure small masses. No dominant mass, suspicious calcifications, or architectural distortion in either breast. IMPRESSION: No mammographic evidence of malignancy. Follow up recommendation: Routine yearly BI-RADS Category 1: NEGATIVE A "normal" or negative report should not discourage follow up or biopsy of a clinically significant f inding. A written summary of these findings will be mailed to the patient. The patient will be entered into a mammography reporting system which will generate a reminder letter for the patient's next appointmen t at the appropriate interval. The [employer] recommends yearly mammograms starting at age 40 and continuing as l ben as a woman is in good health. Breast MRI is recommended for women with an approximate 20-25% or greater lifetime risk of breast cancer, including women with a strong family history of breast or ova thompson cancer or who have been treated for Hodgkin's disease. Signer Name: Paulie Langford MD Signed: 09/20/2021 2:52 PM Workstation Name: [id number]
== END 2021-09-20 05:42 | disposition home or self-care (01) ==
LOC: MAMMO 05:41
PROVIDERS: ATTEND Family Medicine
DX: Z12.31 Encounter for screening mammogram for malignant neoplasm of breast (principal)
CPT/HCPCS: 77067